=== PATIENT | male | born 1970 | race Caucasian/White ===

== ENCOUNTER 2016-12-28 21:23 | Emergency (ER) | payer MEDICAID ==
[~2016-12-28] VITALS: Ht 172.7 cm; Wt 82.8 kg
[2016-12-28 21:33] VITALS: BP 133/90
[2016-12-28] MEDS ORDERED: KETOROLAC 30 MG/1 ML ONE (22:15)
[2016-12-28] MEDS ORDERED: KETOROLAC 30 MG/1 ML IM ONE (22:30)
== END 2016-12-28 23:56 | disposition home or self-care (01) ==
LOC: ED 23:50
DX: S16.1XXA Strain of muscle, fascia and tendon at neck level, initial encounter (principal); F15.10 Other stimulant abuse, uncomplicated; J44.9 Chronic obstructive pulmonary disease, unspecified; X58.XXXA Exposure to other specified factors, initial encounter; Y93.89 Activity, other specified; Y92.89 Other specified places as the place of occurrence of the external cause; Y99.8 Other external cause status
CPT/HCPCS: 72125; 96372; 99284; J1885

== ENCOUNTER 2021-02-08 08:58 | Emergency (ER) | payer SELFPAY ==
[~2021-02-08] VITALS: Ht 172.7 cm; Wt 89.2 kg
--- NOTE | 2021-02-08 10:00 | NUR ---
COGNOS: PT TO ROOM FROM LOBBY
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
[2021-02-08] MEDS ORDERED: METHOCARBAMOL 750 MG TABLET ONE (11:12)
[2021-02-08] MEDS ORDERED: KETOROLAC 30 MG/1 ML ONE (11:12)
[2021-02-08] MEDS ORDERED: KETOROLAC 30 MG/1 ML IM ONE (11:30)
[2021-02-08] MEDS ORDERED: METHOCARBAMOL 750 MG TABLET PO ONE (11:30)
[2021-02-08 12:19] VITALS: BP 129/86
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
== END 2021-02-08 12:21 | disposition home or self-care (01) ==
LOC: ED 12:10
DX: S16.1XXA Strain of muscle, fascia and tendon at neck level, initial encounter (principal); J44.9 Chronic obstructive pulmonary disease, unspecified; X58.XXXA Exposure to other specified factors, initial encounter; Y93.89 Activity, other specified; Y92.89 Other specified places as the place of occurrence of the external cause; Y99.8 Other external cause status
CPT/HCPCS: 72050; 96372; 99283; J1885

== ENCOUNTER 2021-03-02 17:41 | Emergency (ER) | payer OTHER ==
[~2021-03-02] VITALS: Ht 172.7 cm; Wt 91.3 kg
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
[2021-03-02] MEDS ORDERED: METHOCARBAMOL 750 MG TABLET ONE (21:38)
[2021-03-02] MEDS ORDERED: HYDROcodone/APAP 5/325 TABLET ONE (21:38)
[2021-03-02] MEDS ORDERED: METHOCARBAMOL 750 MG TABLET PO ONE (22:30)
[2021-03-02] MEDS ORDERED: HYDROcodone/APAP 5/325 TABLET PO ONE (22:30)
[2021-03-03 01:38] VITALS: BP 127/91
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
== END 2021-03-03 01:41 | disposition home or self-care (01) ==
LOC: ED 20:54
DX: S16.1XXA Strain of muscle, fascia and tendon at neck level, initial encounter (principal); S30.0XXA Contusion of lower back and pelvis, initial encounter; J44.9 Chronic obstructive pulmonary disease, unspecified; V29.09XA Motorcycle driver injured in collision with other motor vehicles in nontraffic accident, initial encounter; Y93.89 Activity, other specified; Y92.89 Other specified places as the place of occurrence of the external cause; Y99.8 Other external cause status
CPT/HCPCS: 72110; 72125; 72220; 99285